=== PATIENT | female | born 1950 | race African-American/Black ===

== ENCOUNTER 2017-06-05 11:25 | Inpatient (IN) | payer BC, OTHER ==
[2017-06-05] MEDS ORDERED: ASPIRIN 81 MG CHEWABLE TABLETS PO ONE (12:13)
[2017-06-05] MEDS ORDERED: ASPIRIN 81 MG CHEWABLE TABLETS ONE (12:17)
--- NOTE | 2017-06-05 12:25 | PDOC ---
History of Present Illness - History of Present Illness Initial Comments: 06/05/17 12:15 Patient is a 66 year old female with a history of HTN, DM who presents with chest pain. The patient reports onset of intermittent sharp left-sided chest pain beginning 24 hours ago. She states that the pain is very sharp occurring for 1-3 seconds before resolving. She states that she is pain free for up to 3 hours and as short as a few minutes. The pain occurs at rest or while walking around. She denies any fevers, chills, SOB at rest, nausea, vomiting, abdominal pain or changes with bowel movements or urination. She denies any recent long travel, immobilization, surgeries, or lower extremity edema. <Devendra Weeks - Last Filed: 06/05/17 15:33> <Maral Ewing - Last Filed: 06/05/17 16:06> - General Chief Complaint: Chest Pain Stated Complaint: CHEST PAIN, TINGLING TO BOTH HANDS, HEADACHE Time Seen by Provider: 06/05/17 11:34 Past History - Past Medical History Anemia: No Asthma: Yes (NO MEDS) Cancer: No Cardiac Disorders: No CVA: No COPD: No CHF: No Dementia: No Diabetes: Yes GI Disorders: No Disorders: No HTN: Yes Hypercholesterolemia: No Liver Disease: No Seizures: No Thyroid Disease: No - Surgical History Abdominal Surgery: Yes (GASTRIC BYPASS 2004) Appendectomy: No Cardiac Surgery: No Cholecystectomy: No Lung Surgery: No Neurologic Surgery: No Orthopedic Surgery: Yes (1970S REPAIR OF LEFT AND RIGHT TOES SECONDARY TO DEFORMITY) - Psycho/Social/Smoking Cessation Hx Anxiety: No Suicidal Ideation: No Smoking Status: No Smoking History: Former smoker Have you smoked in the past 12 months: No Number of Cigarettes Smoked Daily: 0 If you are a former smoker, when did you quit?: 1995 Information on smoking cessation initiated: No Hx Alcohol Use: No Drug/Substance Use Hx: No Substance Use Type: None Hx Substance Use Treatment: No <Devendra Weeks - Last Filed: 06/05/17 15:33> <Maral Ewing - Last Filed: 06/05/17 16:06> - Past Medical History Allergies/Adverse Reactions: Allergies Allergy/AdvReac Type Severity Reaction Status Date / Time No Known Allergies Allergy Verified 06/05/17 11:29 Home Medications: Ambulatory Orders Biotin 1 mg PO DAILY 06/05/17 Glyburide/Metformin HCl [Glyburide-Metformin 5-500 mg] 1 each PO BID 06/05/17 Grape Seed Xt/Bioflavon,[place] [Grape Seed 50 mg Capsule] 1 each PO DAILY Losartan/Hydrochlorothiazide [Losartan-Hctz 100-25 mg Tab] 1 each PO DAILY 06/05 [place]-3S/Dha/Epa/Fish Oil [Fish Oil [place]-3 Softgel] 1 each PO DAILY 06/05/17 Turmeric/Turmeric Ext/Pepr Ext [Turmeric Complex 500 mg Cap] 1 each PO DAILY Review of Systems - Review of Systems Constitutional: No: Chills, Fever HEENTM: No: Recent change in vision Respiratory: No: Cough, SOB with Exertion, SOB at Rest, Hemoptysis Cardiac (ROS): Yes: Chest Pain. No: Palpitations, Chest Tightness ABD/GI: No: Constipated, Diarrhea, Nausea, Vomiting : No: Burning, Dysuria Integumentary: No: Rash Neurological: Yes: Tingling. No: Headache, Numbness, Weakness <Devendra Weeks - Last Filed: 06/05/17 15:33> *Physical Exam - Vital Signs Last Vital Signs Temp Pulse Resp BP Pulse Ox 98.2 F 84 18 136/72 100 06/05/17 11:25 06/05/17 11:25 06/05/17 11:25 06/05/17 11:25 06/05/17 11:25 - Physical Exam Comments: 06/05/17 12:28 General Appearance: Nourished. No Apparent Distress HEENT: No Pharyngeal Erythema, Tonsillar Exudate, Tonsillar Erythema Respiratory/Chest: Lungs Clear, Normal Breath Sounds. No Crackles, Rales, Rhonchi, Wheezing Cardiovascular: Regular Rhythm, Regular Rate. No Murmur, Gallop/S3, Gallop/S4 , Reproducible tenderness to palpation over the left anterior chest wall. Gastrointestinal/Abdominal: Normal Bowel Sounds, Soft. No Guarding, Rebound, Tenderness Extremity: Normal Capillary Refill. No Coldness, Cyanosis, Pedal Edema, Swelling, Calf Tenderness Integumentary: Normal Color, Dry, Warm Neurologic: Fully Oriented, Alert, Normal Mood/Affect, Normal Response <Devendra Weeks - Last Filed: 06/05/17 15:33> - Vital Signs Last Vital Signs Temp Pulse Resp BP Pulse Ox 98.2 F 84 18 136/72 100 06/05/17 11:25 06/05/17 11:25 06/05/17 11:25 06/05/17 11:25 06/05/17 11:25 <Maral Ewing - Last Filed: 06/05/17 16:06> ED Treatment Course - LABORATORY CBC & Chemistry Diagram: 06/05/17 12:00 06/05/17 12:00 <Devendra Weeks - Last Filed: 06/05/17 15:33> - LABORATORY CBC & Chemistry Diagram: 06/05/17 12:00 06/05/17 12:00 - ADDITIONAL ORDERS Additional order review: Laboratory Results 06/05/17 06/05/17 12:00 12:00 Sodium 135 L Potassium 4.4 Chloride 102 Carbon Dioxide 25 Anion Gap 8 BUN 36 H Creatinine 1.4 H Creat Clearance w eGFR 37.62 Random Glucose 109 H Calcium 9.5 Total Bilirubin 0.1 L AST 24 ALT 19 Alkaline Phosphatase 106 H Creatine Kinase 76 Troponin I < 0.03 L Total Protein 6.9 Albumin 4.1 06/05/17 12:00 RBC 4.67 MCV 89.4 MCHC 33.5 RDW 12.4 MPV 9.5 Neutrophils % 55.7 Lymphocytes % 33.6 Monocytes % 7.5 Eosinophils % 1.6 Basophils % 1.6 - RADIOLOGY Radiology Studies Ordered: Category Date Time Status CHEST PA & LAT [RAD] Stat Radiology 06/05/17 12:12 Completed - Medications Given in the ED: ED Medications Discontinued Medications Generic Name Dose Route Start Last Admin Trade Name Freq PRN Reason Stop Dose Admin Aspirin 162 mg 06/05/17 12:13 06/05/17 12:18 Asa - PO 06/05/17 12:14 162 mg ONCE ONE Administration <Mraal Ewing - Last Filed: 06/05/17 16:06> Medical Decision Making - Medical Decision Making 06/05/17 12:29 Patient is a 66 year old female with a history of HTN, Dm, who presents with chest pain. Differential includes but is not limited to: Pneumonia, ACS, PE, Musculoskeletal. Given her physical exam and history the patient is not describing pleuritic chest pain and does not have many risk factors for PE and thus her symptoms are unlikely to be due to a PE. The patient doesn't describe any infectious symptoms and with a benign exam, pneumonia is unlikely. ACS is also low on the differential, however given her risk factors, it is reasonable to evaluate for ACS. Her description of her pain as well as physical exam with some reproducible tenderness to palpation of her chest wall makes musculoskeletal the most likely cause of her pain. We will obtain a chest radiograph, cbc, cmp and troponin to evaluate. 06/05/17 13:37 Patient's labs are unremarkable thus far. Troponin is still pending. Chest radiograph is unremarkable read by our radiologist. We got in contact and discussed the case with the patient's PCP Dr. Randall who asked us to contact the patient's independent insurance adjuster Dr. Araujo. We would like to admit the patient for observation given her risk factors for ACS. Will get in contact with Dr. Santos once troponin results are back. 06/05/17 15:31 Discussed the case with Dr. Santos who agrees with admitting the patient for observation. He wishes to obtain a nuclear stress test tomorrow morning. Will admit for observation and stress testing. <Devendra Weeks - Last Filed: 06/05/17 15:33> - Medical Decision Making 06/05/17 16:[address] taveras, pt baseline creatinine 1.2 creatinine <Maral Ewing - Last Filed: 06/05/17 16:06> *DC/Admit/Observation/Transfer - Attestations Physician Attestion: 06/05/17 15:34 I, Dr. Devendra Weeks, attest that this document has been prepared under my direction and personally reviewed by me in its entirety. I further attest, that it accurately reflects all work, treatment, procedures and medical decision -making performed by me. <Devendra Weeks - Last Filed: 06/05/17 15:33> - Discharge Dispostion Admit: Yes <Maral Ewing - Last Filed: 06/05/17 16:06> Diagnosis at time of Disposition: Chest pain Qualifiers: Chest pain type: unspecified Qualified Code(s): R07.9 - Chest pain, unspecified - Discharge Dispostion Condition at time of disposition: Stable - Referrals Referrals: Leandro Randall MD [Primary Care Provider] -
[2017-06-05 12:33] LABS: BASOPHIL 1.6 % (0-2.0); EOSINOPHIL 1.6 % (0-4.5); MCHC 33.5 g/dl (32.0-36.0); MEAN CELL VOLUME 89.4 fl (80-96); MEAN PLT VOLUME 9.5 fl (7.5-11.1); NEUTROPHILS 55.7 % (42.8-82.8); PLATELET COUNT 304 K/MM3 (134-434); RDW 12.4 % (11.6-15.6); WHITE BLOOD COUNT 7.9 K/mm3 (4.0-10.8)
[2017-06-05 12:47] LABS: ALBUMIN 4.1 g/dl (3.5-5.0); ALK PHOS 106 U/L (32-92); ANION GAP 8 (8-16); CALCIUM 9.5 mg/dl (8.4-10.2); CO2 25 mmol/L (22-28); CPK(DFH) 76 IU/L (26-140); CREATININE 1.4 mg/dl (0.6-1.3); GLUCOSE,RANDOM 109 mg/dl (74-106); SGOT/AST 24 U/L (10-42); SGPT/ALT 19 U/L (10-40); TOT PROT 6.9 g/dl (6.4-8.3)
[2017-06-05 13:07] LABS: BILIRUBIN,TOTAL 0.1 mg/dl (0.2-1.0)
[2017-06-05 13:49] LABS: TROPONIN I (DFP) < 0.03 ng/ml (0.03-0.50)
--- NOTE | 2017-06-05 14:49 | PDOC ---
Attending Attestation - Resident Resident Name: Devendra Weeks - ED Attending Attestation I have performed the following: I have examined & evaluated the patient, The case was reviewed & discussed with the resident, I agree w/resident's findings & plan, Exceptions are as noted - HPI HPI: 06/05/17 14:46 66 yo F with h/o HTN DM and family ho CAD here with c/o chest pain. intermittent night prior happened at rest. sharp no radiation. no mod factors. no new leg swelling. no mod factors. did not take anything for pain. no ho pe or dvt. no recent travel. no leg or calf pain. no cough no f/c no n/f no associated diaphoresis. - Physicial Exam PE: 06/05/17 14:47 NAD awake alert lungs clear bilat. heart RRR no mrg. abd soft NTND. skin warm and dry. no calf tenderness. no edema. 2 + symm pulses . nuero moves all ext. alert oriented x 3 - Medical Decision Making 06/05/17 14:48 66 yo F DM HTN famil h/o CAD here with c/o chest pain. reproducible chest pain on exam but several risk factors for CAD. last stress many years ago. differential acs, msk , gerd pna PE unlikely as no risk factors. 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 will likely require admission to tele for serial enzymes. and short term stress. 06/05/17 15:35 d/w dr bose, recommend admission to observation due to RISK factors high heart score, will get nuclear stress in AM. pg hospitalist , received. Heart Score/ECG Review - History History: Moderately suspicious - Electrocardiogram EKG: Non specific repolarization disturbance - Age Age: >/= 65 - Risk Factors Risk Factors Heart Score: Yes Hx Hypertension, Yes Hx Diabetes, Yes Smoking History, Yes Positive family hx of cardiac disease Based on the list above the patient has:: >/=3 risk factors or Hx atherosclerotic disease - Troponin Troponin: </= normal limit - Score Heart Score - Total: 6 #1 ECG reviewed & interpreted by me at: 11:40 General ECG Interpretation: Sinus Rhythm, Normal Rate (78), Normal Intervals, No acute ischemic changes Compared to previous ECG there are: No significant change - ECG Intrepretation Rhythm: Regular Rhythm
[2017-06-05] MEDS ORDERED: SODIUM CHLORIDE 0.9% 1000 ML INFUS.BAG IV ONE (16:02)
[2017-06-05 18:15] VITALS: BMI 30.9
[2017-06-05] MEDS: INSULIN SLIDING SCALE (NOVOLOG) 1 VIAL SQ SCH ×2 (19:14→21:47)
--- NOTE | 2017-06-05 21:03 | EKG ---
Test Reason : Blood Pressure : / mmHG Vent. Rate : 078 BPM Atrial Rate : 078 BPM P-R Int : 170 ms QRS Dur : 078 ms QT Int : 386 ms P-R-T Axes : 014 -63 058 degrees QTc Int : 440 ms NORMAL SINUS RHYTHM LEFT AXIS DEVIATION ATRIAL ABNORMALITY NONSPECIFIC T WAVE ABNORMALITY ABNORMAL ECG WHEN COMPARED WITH ECG OF 14-DEC-1999 09:12, NO SIGNIFICANT CHANGE WAS FOUND REPEAT EKG IF CLINICALLY INDICATED Confirmed by KARI SOSA MD ([id number]) on 06/05/2017 9:02:38 PM Referred By: KARLEY JAIME Confirmed By:KARI SOSA MD
--- NOTE | 2017-06-05 22:10 | HP ---
CHIEF COMPLAINT: Chest Pain, Numbness PCP: Dr. Leandro Randall HISTORY OF PRESENT ILLNESS: This is a 66 y/o woman with a past medical history HTN, DM. Who presents to the ED with Left sided CP and bilateral hand numbness x 1 day. Patient reports the CP has sharp and intermittent. Patient denies recent travel, lifting heavy objects. Patient denies fever, chills, cough, SOB, AP, N/V/D, constipation, dysuria. Patient has a familial hx of Cardiac Disease. ER course was notable for: (1) Cardiac Enzymes neg x2 (2) EKG- SR 76 bpm , no ST or TWI (3) TONI- BUN 36, Cr 1.4 Recent Travel: None PAST MEDICAL HISTORY: HTN DM Asthma PAST SURGICAL HISTORY: Gastric Bypass Social History: Smoking: Former, quit 1995 Alcohol: None Drugs: None Lives with family, Independent Family History: Mother: [place], age 50 Father: [place] Allergies No Known Allergies Allergy (Verified 06/05/17 11:29) HOME MEDICATIONS: Home Medications Medication Instructions Recorded Biotin 1 mg PO DAILY 06/05/17 Glyburide/Metformin HCl 1 each PO BID 06/05/17 [Glyburide-Metformin 5-500 mg] Grape Seed Xt/Bioflavon,[place] 1 each PO DAILY 06/05/17 [Grape Seed 50 mg Capsule] Losartan/Hydrochlorothiazide 1 each PO DAILY 06/05/17 [Losartan-Hctz 100-25 mg Tab] [place]-3S/Dha/Epa/Fish Oil [Fish 1 each PO DAILY 06/05/17 Oil [place]-3 Softgel] Turmeric/Turmeric Ext/Pepr Ext 1 each PO DAILY 06/05/17 [Turmeric Complex 500 mg Cap] REVIEW OF SYSTEMS CONSTITUTIONAL: Absent: fever, chills, diaphoresis, generalized weakness, malaise, loss of appetite, weight change HEENT: Absent: rhinorrhea, nasal congestion, throat pain, throat swelling, difficulty swallowing, mouth swelling, ear pain, eye pain, visual changes CARDIOVASCULAR: chest pain Absent: syncope, palpitations, irregular heart rate, lightheadedness, peripheral edema RESPIRATORY: Absent: cough, shortness of breath, dyspnea with exertion, orthopnea, wheezing, stridor, hemoptysis GASTROINTESTINAL: Absent: abdominal pain, abdominal distension, nausea, vomiting, diarrhea, constipation, melena, hematochezia GENITOURINARY: Absent: dysuria, frequency, urgency, hesitancy, hematuria, flank pain, genital pain MUSCULOSKELETAL: Absent: myalgia, arthralgia, joint swelling, back pain, neck pain SKIN: Absent: rash, itching, pallor HEMATOLOGIC/IMMUNOLOGIC: Absent: easy bleeding, easy bruising, lymphadenopathy, frequent infections ENDOCRINE: Absent: unexplained weight gain, unexplained weight loss, heat intolerance, cold intolerance NEUROLOGIC: paresthesias Absent: headache, focal weakness, dizziness, unsteady gait, seizure, mental status changes, bladder or bowel incontinence PSYCHIATRIC: Absent: anxiety, depression, suicidal or homicidal ideation, hallucinations. PHYSICAL EXAMINATION Vital Signs - 24 hr 06/05/17 06/05/17 06/05/17 18:06 18:14 20:09 Temperature 97.4 F L 97.4 F L Pulse Rate 71 71 Respiratory 18 18 18 Rate Blood Pressure 112/56 112/56 O2 Sat by Pulse 100 100 Oximetry (%) GENERAL: Awake, alert, and fully oriented, in no acute distress. HEAD: Normal with no signs of trauma. EYES: Pupils equal, round and reactive to light, extraocular movements intact, sclera anicteric, conjunctiva clear. No lid lag. EARS, NOSE, THROAT: Ears normal, nares patent, oropharynx clear without exudates. Moist mucous membranes. NECK: Normal range of motion, supple without lymphadenopathy, JVD, or masses. LUNGS: Breath sounds equal, clear to auscultation bilaterally. No wheezes, and no crackles. No accessory muscle use. HEART: Regular rate and rhythm, normal S1 and S2 without murmur, rub or gallop. CP reproducible to palpation ABDOMEN: Soft, nontender, not distended, normoactive bowel sounds, no guarding, no rebound, no masses. No hepatomegaly or splenomegaly. MUSCULOSKELETAL: Normal range of motion at all joints. No bony deformities or tenderness. No CVA tenderness. UPPER EXTREMITIES: 2+ pulses, warm, well-perfused. No cyanosis. No clubbing. No peripheral edema. LOWER EXTREMITIES: 2+ pulses, warm, well-perfused. No calf tenderness. No peripheral edema. NEUROLOGICAL: Cranial nerves II-XII intact. Normal speech. Gait not observed. PSYCHIATRIC: Cooperative. Good eye contact. Appropriate mood and affect. SKIN: Warm, dry, normal turgor, no rashes or lesions noted, normal capillary refill. Laboratory Results - last 24 hr 06/05/17 06/05/17 06/05/17 12:00 12:00 12:00 WBC 7.9 RBC 4.67 Hgb 14.0 Hct 41.7 MCV 89.4 MCH 30.0 MCHC 33.5 RDW 12.4 Plt Count 304 MPV 9.5 Neutrophils % 55.7 Lymphocytes % 33.6 Monocytes % 7.5 Eosinophils % 1.6 Basophils % 1.6 Sodium 135 L Potassium 4.4 Chloride 102 Carbon Dioxide 25 Anion Gap 8 BUN 36 H Creatinine 1.4 H Creat Clearance w eGFR 37.62 POC Glucometer Random Glucose 109 H Calcium 9.5 Total Bilirubin 0.1 L AST 24 ALT 19 Alkaline Phosphatase 106 H Creatine Kinase 76 Troponin I < 0.03 L Total Protein 6.9 Albumin 4.1 06/05/17 06/05/17 06/06/17 18:10 21:42 00:00 WBC RBC Hgb Hct MCV MCH MCHC RDW Plt Count MPV Neutrophils % Lymphocytes % Monocytes % Eosinophils % Basophils % Sodium Potassium Chloride Carbon Dioxide Anion Gap BUN Creatinine Creat Clearance w eGFR POC Glucometer 163 Random Glucose Calcium Total Bilirubin AST ALT Alkaline Phosphatase Creatine Kinase Cancelled Troponin I 0.00 Cancelled Total Protein Albumin 06/06/17 00:03 WBC RBC Hgb Hct MCV MCH MCHC RDW Plt Count MPV Neutrophils % Lymphocytes % Monocytes % Eosinophils % Basophils % Sodium Potassium Chloride Carbon Dioxide Anion Gap BUN Creatinine Creat Clearance w eGFR POC Glucometer Random Glucose Calcium Total Bilirubin AST ALT Alkaline Phosphatase Creatine Kinase 80 Troponin I < 0.02 Total Protein Albumin Laboratory Results - last 24 hr 06/05/17 06/05/17 18:10 21:42 POC Glucometer 163 Troponin I 0.00 ASSESSMENT/PLAN: This is a 66 y/o woman with a PMHx of: HTN, DM, Asthma. Placed on Tele Observation for Chest Pain r/o ACS, Numbness for further evaluation of their emergent condition. Problem List - Problem (1) Chest pain Assessment/Plan: - r/o ACS - HEART Score 6 - BIBI Score 2 - EKG reviewed - Chest Xray- reviewed - Tele monitoring - Appreciate Cardiology Consult - Serial Enzymes neg x2 continue to trend - Asa - Stress Test in am Code(s): R07.9 - CHEST PAIN, UNSPECIFIED Qualifiers: Chest pain type: unspecified Qualified Code(s): R07.9 - Chest pain, unspecified (2) TONI (acute kidney injury) Assessment/Plan: - Likely secondary to Medication vs Dehydration - Cr 1.4 not at baseline - Will Hold Metformin - Monitor renal function Code(s): N17.9 - ACUTE KIDNEY FAILURE, UNSPECIFIED (3) HTN (hypertension) Assessment/Plan: - Controlled - Monitor BP - Continue home med - Monitor renal function - Low Na Diet Code(s): I10 - ESSENTIAL (PRIMARY) HYPERTENSION (4) Diabetes mellitus Assessment/Plan: - Controlled - BGMs - ISS - HgbA1c in am - Hold Metformin 2/2 renal insufficiency Code(s): E11.9 - TYPE 2 DIABETES MELLITUS WITHOUT COMPLICATIONS (5) Asthma Assessment/Plan: - Well Controlled - Ventolin Inh prn SOB Code(s): J45.909 - UNSPECIFIED ASTHMA, UNCOMPLICATED (6) DVT prophylaxis Assessment/Plan: - OOB - SCDs - Heparin if LOS > 48 hrs Code(s): OFZ6051 - Visit type - Emergency Visit Emergency Visit: Yes ED Registration Date: 06/05/17 Care time: The patient presented to the Emergency Department on the above date and was hospitalized for further evaluation of their emergent condition. - New Patient This patient is new to me today: Yes Date on this admission: 06/05/17 - Critical Care Critical Care patient: No
[2017-06-06 00:33] LABS: TROPONIN I < 0.02 ng/ml (0.00-0.05)
[2017-06-06] MEDS: INSULIN SLIDING SCALE (NOVOLOG) 1 VIAL SQ SCH ×3 (06:03→18:20)
[2017-06-06 08:39] LABS: ANION GAP 6 (8-16); CALCIUM 9.2 mg/dl (8.4-10.2); CO2 26 mmol/L (22-28); CREATININE 1.2 mg/dl (0.6-1.3); GLUCOSE,RANDOM 125 mg/dl (74-106); MAGNESIUM 2.1 mg/dL (1.8-2.4); PHOSPHOROUS 4.9 mg/dl (2.5-4.6)
[2017-06-06 09:21] LABS: MCH 30.2 pg (25.7-33.7); MCHC 33.3 g/dl (32.0-36.0); MEAN CELL VOLUME 90.6 fl (80-96); MEAN PLT VOLUME 9.3 fl (7.5-11.1); PLATELET COUNT 245 K/MM3 (134-434); RDW 12.5 % (11.6-15.6); WHITE BLOOD COUNT 6.3 K/mm3 (4.0-10.8)
--- NOTE | 2017-06-06 09:29 | PN ---
Physical Exam: SUBJECTIVE: Patient seen and examined reports feeling well, denies any chest pain or shortness of breath. OBJECTIVE: patient is a 66 y/o woman with a past medical history HTN and DM. Patient was admitted from the emergency department to observation for chest pain r/o acs. Vital Signs Period Temp Pulse Resp BP Sys/[place]rick Pulse Ox Last 24 Hr 97.4 F-98.3 F 58-71 18-18 106-121/56-69 100-100 GENERAL: The patient is awake, alert, and fully oriented, in no acute distress. HEAD: Normal with no signs of trauma. EYES: PERRL, extraocular movements intact, sclera anicteric, conjunctiva clear. No ptosis. ENT: Ears normal, nares patent, oropharynx clear without exudates, moist mucous membranes. NECK: Trachea midline, full range of motion, supple. LUNGS: Breath sounds equal, clear to auscultation bilaterally, no wheezes, no crackles, no accessory muscle use. HEART: Regular rate and rhythm, S1, S2 without murmur, rub or gallop. ABDOMEN: Soft, nontender, nondistended, normoactive bowel sounds, no guarding, no rebound, no hepatosplenomegaly, no masses. EXTREMITIES: 2+ pulses, warm, well-perfused, no edema. NEUROLOGICAL: Cranial nerves II through XII grossly intact. Normal speech, gait not observed. PSYCH: Normal mood, normal affect. SKIN: Warm, dry, normal turgor, no rashes or lesions noted Laboratory Results - last 24 hr 06/05/17 06/05/17 06/06/17 18:10 21:42 00:00 WBC RBC Hgb Hct MCV MCH MCHC RDW Plt Count MPV Sodium Potassium Chloride Carbon Dioxide Anion Gap BUN Creatinine POC Glucometer 163 Random Glucose Calcium Phosphorus Magnesium Creatine Kinase Cancelled Troponin I 0.00 Cancelled 06/06/17 06/06/17 06/06/17 00:03 06:01 07:30 WBC 6.3 RBC 4.39 Hgb 13.3 Hct 39.7 MCV 90.6 MCH 30.2 MCHC 33.3 RDW 12.5 Plt Count 245 MPV 9.3 Sodium Potassium Chloride Carbon Dioxide Anion Gap BUN Creatinine POC Glucometer 113 Random Glucose Calcium Phosphorus Magnesium Creatine Kinase 80 Troponin I < 0.02 06/06/17 07:30 WBC RBC Hgb Hct MCV MCH MCHC RDW Plt Count MPV Sodium 136 Potassium 4.4 Chloride 104 Carbon Dioxide 26 Anion Gap 6 L BUN 28 H D Creatinine 1.2 POC Glucometer Random Glucose 125 H Calcium 9.2 Phosphorus 4.9 H Magnesium 2.1 Creatine Kinase Troponin I Active Medications Generic Name Dose Route Start Last Admin Trade Name Freq PRN Reason Stop Dose Admin Insulin Aspart 1 vial 06/05/17 16:30 06/06/17 06:03 Novolog Vial Sliding Scale - SQ Not Given ACHS SHREYA Protocol ASSESSMENT/PLAN: 1) card chest pain r/o acs - ekg nsr left axis deviation nonspecific t wave abnormality -troponin x 3 - continue asa - pending nuclear stress test - cardiology () consulted and followed hypertension - b/p at goal, restart losartarn and hctz after stress 2) neph acute kidney injury - likely secondary to dehydration, creatine 1.2, unknown baseline - continue to hold metformin 3)endo niddm - pending hgb a1c - fingersticks achs with regular insulin sliding scale 4) pulm asthma - no acute excerbation at this time - continue prn ventolin f/e/n - low sodium diabetic diet ppx - oob - scd - less than 2mn los dispo: requires tele obsv Visit type - Emergency Visit Emergency Visit: Yes ED Registration Date: 06/05/17 Care time: The patient presented to the Emergency Department on the above date and was hospitalized for further evaluation of their emergent condition. - New Patient This patient is new to me today: Yes Date on this admission: 06/06/17 - Critical Care Critical Care patient: No - Discharge Referral Referred to [facility] Med P.C.: No
--- NOTE | 2017-06-06 13:07 | TRE ---
Protocol Name : KRISTIE Max Work Load (METS*10) : 70 Time In Exercise Phase : 00:05:24 Max. Systolic BP : 170 mmHg Max Diastolic BP : 82 mmHg Max Heart Rate : 130 BPM Max Predicted Heart Rate : 154 BPM Attending Physician : DANDRE FRIEND Reason For Termination : Target Heart Rate Achieved Reason for Test : UNSTABLE ANGINA Stress Protocol : KRISTIE Rest HR : 88 BPM PeakEx METs : 7.0 METS Recovery ECG Response (OLD) : Diagnosis : Positive stress test no chest pain [address] depression II III F frequent VPC's Inverted T vawes in V4-V6 in recovery Confirmed by DANDRE FRIEND MD ([id number]) on 06/06/2017 1:07:14 PM
--- NOTE | 2017-06-06 14:22 | CONS ---
DATE OF CONSULTATION: 06/06/2017 REQUESTING PHYSICIAN: Karen Gupta NP HISTORY: The patient is a 66-year-old female who has a known case of hpi-rlrwftj-dgetdphgw diabetes mellitus, hypertension. The patient developed bilateral paresthesia involving both upper extremities associated with mild left-sided pressure-like chest discomfort. The symptoms started 1 week ago and occurred at rest resting 1-2 minutes and would james spontaneously. The patient states that on the first day she had 3-4 episodes and the following day she had recurrent approximately 2 times. There were days when she was symptom free and then on the day of admission had another episode that was similar in nature and was nonexertional, nonpleuritic, and there were no symptoms of dyspnea, diaphoresis. The patient did notice that she had excessive flatulence. There is no history of hypercholesterolemia. The patient does have exertional dyspnea climbing 2 flights of stairs. No history of paroxysmal or nocturnal dyspnea or orthopnea. No history of palpitations, lightheadedness, dizziness, presyncope, or syncope. No history of cough or expectoration. PAST HISTORY: 1. Bronchial asthma. 2. As mentioned in the history of present illness. 3. History of arthritis of the left hip. SURGICAL HISTORY: 1. Status post tonsillectomy. 2. Status post gastric bypass surgery. 3. Status post left hip replacement. SOCIAL HISTORY: She is single. Stopped smoking back in the mid 90s. On a rare occasion has a drink. No history of drug use. FAMILY HISTORY: Father in his 70s related to a myocardial infarction. Mother in her 50s related to a myocardial infarction. The patient has 2 brothers and 2 sisters. Both signs are , one with complications of bronchial asthma the other due to complications of chronic obstructive pulmonary disease. The brother of ethanol abuse. The other brother is also an alcoholic and is known to have coronary artery disease. ALLERGIES: None reported. MEDICATIONS: Current medications: 1. Insulin sliding scale. 2. Aspirin 82 mg p.o. daily. Medications prior to admission: 1. Glyburide metformin 5/500 mg p.o. b.i.d. before meals. 2. Losartan/hydrochlorothiazide 100/25 mg p.o. daily. 3. [place]bler-3 fatty acid 1 p.o. daily. Fsqn-xau-zwrguap: 1. Biotin 1 p.o. daily. 2. Turmeric extract 1 p.o. daily. 3. Grape seed and bioflavin 1 p.o. daily. REVIEW OF SYSTEMS: Constitutional: No history of chills, fever, or night sweats. No history of unintentional weight loss. HEENT: No history of headaches, diplopia, blurred vision. No history of epistaxis, hoarseness, tinnitus, or deafness reported. Cardiovascular: See history of present illness. Respiratory: History of bronchial asthma. No recent recurrence. No history of cough expectoration or hemoptysis. Gastrointestinal: No history of nausea, melena, or hemoptysis. No history of abdominal pain or discomfort. No history of change in bowel habits. Central Nervous System: No history of lightheadedness, dizziness, presyncope, or syncope. No history of seizures or focal weakness. Endocrine: See history of present illness. No history of polyuria or polydipsia. No history of intolerance to cold or warm weather. Musculoskeletal: See history of present illness. No history of myalgias. Gastrointestinal: No history of dysuria, frequency, or hematuria. Hematological/Lymphatics: No history of ecchymosis, bleeding. No history of anemia. No history of lymphadenopathy. PHYSICAL EXAMINATION: General: A 66-year-old female who is in no distress. No pallor, cyanosis, clubbing, or jaundice. Vital Signs: Blood pressure 106/69 mmHg, pulse 58 beats per minute and regular. Patient is afebrile. Weight is not available. Neck: Supple. No jugular venous distention. Carotids are equal, and upstrokes are normal. No bruits are heard, and no thyromegaly is present. Heart: PMI is in the 5th intercostal space. No heaves or thrills. S1, S2 are normal. No murmur or gallop is heard. Lungs: Clear on auscultation. Chest: Normal AP diameter. Expansion is symmetrical. Abdomen: Protuberant, soft, and nontender. No hepatosplenomegaly or palpable masses are felt. There is a well healed surgical scar. Bowel sounds are active. No bruits are heard. Extremities: No calf tenderness or dependent edema. Pulses are equal. LABORATORY DATA: ECG: Normal sinus rhythm. Left axis deviation consistent with left anterior hemiblock. Slow R wave progression V1-V4 with terminal S5 in V5 and V6 most likely related to left anterior hemiblock or related to technical and/or positional factors. Nonspecific T-wave abnormalities. No previous ECG was available for comparision. June 06, 2017: Sodium 126, potassium 4.4, chloride 104, CO2 is 26, BUN 6, creatinine 1.2. Random glucose 125 mg/dL. CK was 80, troponin less than 0.02. CBC: WBC count 6300, hemoglobin 13.3 g, platelet count 245,000. X-ray chest impression: No evidence of active pulmonary disease. IMPRESSION: 1. Chest pain syndrome. Etiology to be determined. Coronary artery disease, angina pectoris needs exclusion. 2. Dzi-omampky-xkcjiggao diabetes mellitus. 3. Hypertension. Hypertensive coronary artery disease currently normotensive. 4. History of bronchial asthma. 5. Status post gastric bypass surgery. 6. Family history of coronary artery disease. RECOMMENDATIONS: 1. Myoview stress test. 2. Risk modifications. 3. Continue current therapy. 4. Resume antihypertensive therapy following the stress test. 5. Further suggests will depend upon the stress test results. Thank you for your referral. Sincerely, KARI SOSA M.D. [id number]
--- NOTE | 2017-06-06 15:34 | DS ---
Physical Exam: SUBJECTIVE: Patient seen and examined, patient is pending transfer to [facility] for cardiac cath. OBJECTIVE: patient is a 66 y/o woman with a past medical history HTN, DM. She presented to the ED with Left sided CP and bilateral hand numbness x 1 day. Patient reports the chest pain was sharp and intermittent. Patient denies recent travel, lifting heavy objects. Patient denies fever, chills, cough, SOB, AP, N/V/D, constipation, dysuria. Patient has a familial hx of Cardiac Disease. ER course was notable for: (1) Cardiac Enzymes neg x2 (2) EKG- SR 76 bpm , no ST or TWI (3) TONI- BUN 36, Cr 1.4 Vital Signs Period Temp Pulse Resp BP Sys/Myrick Pulse Ox Last 24 Hr 97.4 F-98.3 F 58-71 16-18 106-121/56-69 98-100 PHYSICAL EXAM GENERAL: The patient is awake, alert, and fully oriented, in no acute distress. HEAD: Normal with no signs of trauma. EYES: PERRL, extraocular movements intact, sclera anicteric, conjunctiva clear. ENT: Ears normal, nares patent, oropharynx clear without exudates, moist mucous membranes. NECK: Trachea midline, full range of motion, supple. LUNGS: Breath sounds equal, clear to auscultation bilaterally, no wheezes, no crackles, no accessory muscle use. HEART: Regular rate and rhythm, S1, S2 without murmur, rub or gallop. ABDOMEN: Soft, nontender, nondistended, normoactive bowel sounds, no guarding, no rebound, no hepatosplenomegaly, no masses. EXTREMITIES: 2+ pulses, warm, well-perfused, no edema. NEUROLOGICAL: Cranial nerves II through XII grossly intact. Normal speech, gait not observed. PSYCH: Normal mood, normal affect. SKIN: Warm, dry, normal turgor, no rashes or lesions noted. LABS Laboratory Results - last 24 hr 06/05/17 06/05/17 06/06/17 18:10 21:42 00:00 WBC RBC Hgb Hct MCV MCH MCHC RDW Plt Count MPV Sodium Potassium Chloride Carbon Dioxide Anion Gap BUN Creatinine POC Glucometer 163 Random Glucose Calcium Phosphorus Magnesium Creatine Kinase Cancelled Troponin I 0.00 Cancelled 06/06/17 06/06/1717 00:03 06:01 07:30 WBC 6.3 RBC 4.39 Hgb 13.3 Hct 39.7 MCV 90.6 MCH 30.2 MCHC 33.3 RDW 12.5 Plt Count 245 MPV 9.3 Sodium Potassium Chloride Carbon Dioxide Anion Gap BUN Creatinine POC Glucometer 113 Random Glucose Calcium Phosphorus Magnesium Creatine Kinase 80 Troponin I < 0.02 06/06/17 07:30 WBC RBC Hgb Hct MCV MCH MCHC RDW Plt Count MPV Sodium 136 Potassium 4.4 Chloride 104 Carbon Dioxide 26 Anion Gap 6 L BUN 28 H D Creatinine 1.2 POC Glucometer Random Glucose 125 H Calcium 9.2 Phosphorus 4.9 H Magnesium 2.1 Creatine Kinase Troponin I HOSPITAL COURSE: Patient is a 66 y/o female that was admitted from the emergency department to telemetry for unstable angina. EKG upon admission, NSR with non specific t wave abnormality. Troponin x 3 WNL. Patient was given aspirin upon arrival to the emergency department and continued throughout admission. She denied any episode of chest pain during her admission. Dr Santos, envelope folding machine operator was consulted and case discussed at bedside. Patient underwent a exercise stress test which resulted as 1mm st depression in the inferior leads, II, III, avf with inverted t waves v 4- v6, positive stress test. She next underwent a myocardial perfusion scan, resulting as moderate sized mild intensity inferior septal reversible perfusion defect consistent with ischemia. Patient was placed on toprol 25mg xl. Upon review of exercise and myocardial perfusion scan with the envelope folding machine operator, patient was informed of the results and decision was made for transfer to [facility] for cardiac cath. Transfer arrangement was made by Dr Santos cardiology. Date of Admission:06/05/17 Date of Discharge: 06/06/17 Minutes to complete discharge: 45 Discharge Summary Reason For Visit: CHEST PAIN Current Active Problems TONI (acute kidney injury) (Acute) Asthma (Acute) Chest pain (Acute) DVT prophylaxis (Acute) Diabetes mellitus (Acute) HTN (hypertension) (Acute) Condition: Guarded - Instructions Referrals: Leandro Randall MD [Primary Care Provider] - Darin Santos MD [Staff Physician] - Disposition: TRANSFER ACUTE CARE/OTHER HOSP - Home Medications Comprehensive Discharge Medication List: Ambulatory Orders Biotin 1 mg PO DAILY 06/05/17 Glyburide/Metformin HCl [Glyburide-Metformin 5-500 mg] 1 each PO BID 06/05/17 Grape Seed Xt/Bioflavon,[place] [Grape Seed 50 mg Capsule] 1 each PO DAILY Losartan/Hydrochlorothiazide [Losartan-Hctz 100-25 mg Tab] 1 each PO DAILY 06/05 Egan-3S/Dha/Epa/Fish Oil [Fish Oil [place]-3 Softgel] 1 each PO DAILY 06/05/17 Turmeric/Turmeric Ext/Pepr Ext [Turmeric Complex 500 mg Cap] 1 each PO DAILY This patient is new to me today: Yes Date on this admission: 06/06/17 Emergency Visit: Yes ED Registration Date: 06/05/17 Care time: The patient presented to the Emergency Department on the above date and was hospitalized for further evaluation of their emergent condition. Critical Care patient: Yes Total Critical Care Time (in minutes): 45 Critical Care Statement: The care of this patient involved high complexity decision making to prevent further life threatening deterioration of the patient 's condition and/or to evalute & treat vital organ system(s) failure or risk of failure. - Discharge Referral Referred to [facility] No
[2017-06-06] MEDS ORDERED: ASPIRIN 81 MG CHEWABLE TABLETS PO SCH (17:30)
[2017-06-06] MEDS ORDERED: METOPROLOL SUCCINATE 25 MG TAB.SR.24H (FP) PO SCH (17:30)
[2017-06-06 21:16] VITALS: BP 126/77; PULSE 62; TEMP 97.9
[2017-06-06] MEDS ORDERED: INSULIN SLIDING SCALE (NOVOLOG) 1 VIAL SQ SCH (22:00)
[2017-06-07] MEDS ORDERED: ASPIRIN 81 MG CHEWABLE TABLETS PO SCH (10:00)
[2017-06-07] MEDS ORDERED: [UNRECOGNIZED DRUG - OTHER] PO SCH ×3 (10:00)
[2017-06-07] MEDS ORDERED: [UNRECOGNIZED DRUG - OTHER] PO SCH ×3 (10:00)
[2017-06-07] MEDS ORDERED: PATIENT'S OWN MEDICATION (NON-FORMULARY) (Losartan/Hydrochlorothiazide [Losartan-Hctz 100- PO SCH (10:00)
[2017-06-07] MEDS ORDERED: PEPR EXT PO SCH ×3 (10:00)
[2017-06-07] MEDS ORDERED: TURMERIC PO SCH ×3 (10:00)
[2017-06-07] MEDS ORDERED: PATIENT'S OWN MEDICATION (NON-FORMULARY) (Omega-3s/Dha/Epa/Fish Oil [Fish Oil Omega-3 Soft PO SCH ×3 (10:00)
[2017-06-07] MEDS ORDERED: TURMERIC EXT PO SCH ×3 (10:00)
[2017-06-07] MEDS ORDERED: LOSARTAN 50MG/HCTZ 12.5MG 1 TAB (FP) PO SCH ×2 (10:00)
[2017-06-07] MEDS ORDERED: PATIENT'S OWN MEDICATION (NON-FORMULARY) (Biotin [Biotin] 1 MG) PO SCH ×3 (10:00)
== END 2017-06-06 23:45 | disposition short-term general hospital (02) | DRG 303 ==
LOC: FER 11:25 → FM/S 17:01 → OBSVTOIN 06-06 16:27 → UNDODISOB 06-06 16:28 → JICU 06-06 17:20 → J4W 06-06 19:55
PROVIDERS: ADMIT Internal Medicine; ATTEND Nurse Practitioner Family
DX: I25.118 Atherosclerotic heart disease of native coronary artery with other forms of angina pectoris (principal); N17.9 Acute kidney failure, unspecified; R07.89 Other chest pain; I10 Essential (primary) hypertension; E11.9 Type 2 diabetes mellitus without complications; J45.909 Unspecified asthma, uncomplicated; Z98.84 Bariatric surgery status; Z87.891 Personal history of nicotine dependence; E86.0 Dehydration
CPT/HCPCS: 36415; 71020-TC; 78452-TC; 80048; 80053; 82550; 83735; 84100; 84484; 85025; 85027; 93005; 93017; 93018; 99285-25; A9502; G0378

== ENCOUNTER 2017-11-19 11:45 | Observation (INO) | payer OTHER ==
[2017-11-19] MEDS ORDERED: SODIUM CHLORIDE 1,000 ML IV STA (12:21)
[2017-11-19 12:36] VITALS: BMI 31.6
--- NOTE | 2017-11-19 12:36 | PDOC ---
History of Present Illness - General History Source: Patient, Family Exam Limitations: No Limitations - History of Present Illness Initial Comments: 11/19/17 13:03 The patient is a 67 year old female, with a significant past medical history of HTN, DM who presents to the emergency department s/p fall today. 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 Patient was unconscious for few minutes and found herself on the floor. Patient landed on her L hip and presents to the ED for further evaluation. Patient denies any head trauma, other injuries. Patient denies chest pain, headache or dizziness. Patient denies fever, chills, abdominal pain, nausea, vomit, diarrhea or constipation. Patient denies dysuria , frequency, urgency or hematuria. Patient denies sick contacts or recent travel. Allergies: NKA Past surgical history: None Social history: Former smoker (1995) PCP: Dr. Randall <Fabiola Ramsay - Last Filed: 11/19/17 14:03> - General History Source: Patient, Family Exam Limitations: No Limitations <Jeff Horowitz - Last Filed: 11/19/17 14:52> - General Chief Complaint: Pain Stated Complaint: FALL Time Seen by Provider: 11/19/17 12:10 Past History <Fabiola Ramsay - Last Filed: 11/19/17 14:03> - Past Medical History Anemia: No Asthma: Yes (NO MEDS) Cancer: No Cardiac Disorders: No CVA: No COPD: No CHF: No Dementia: No Diabetes: Yes GI Disorders: No Disorders: No HTN: Yes Hypercholesterolemia: No Liver Disease: No Seizures: No Thyroid Disease: No - Surgical History Abdominal Surgery: Yes (GASTRIC BYPASS 2004) Appendectomy: No Cardiac Surgery: No Cholecystectomy: No Lung Surgery: No Neurologic Surgery: No Orthopedic Surgery: Yes (1970S REPAIR OF LEFT AND RIGHT TOES SECONDARY TO DEFORMITY) - Suicide/Smoking/Psychosocial Hx Smoking Status: No Smoking History: Never smoked Have you smoked in the past 12 months: No Number of Cigarettes Smoked Daily: 0 If you are a former smoker, when did you quit?: 1995 Information on smoking cessation initiated: No Hx Alcohol Use: No Drug/Substance Use Hx: No Substance Use Type: None Hx Substance Use Treatment: No <Jeff Horowitz - Last Filed: 11/19/17 14:52> - Past Medical History Allergies/Adverse Reactions: Allergies Allergy/AdvReac Type Severity Reaction Status Date / Time No Known Allergies Allergy Verified 06/05/17 11:29 Home Medications: Ambulatory Orders Biotin 1 mg PO DAILY 06/05/17 Grape Seed Xt/Bioflavon,[place] [Grape Seed 50 mg Capsule] 1 each PO DAILY Losartan/Hydrochlorothiazide [Losartan-Hctz 100-25 mg Tab] 1 each PO DAILY 06/05 [place]-3S/Dha/Epa/Fish Oil [Fish Oil [place]-3 Softgel] 1 each PO DAILY 06/05/17 Turmeric/Turmeric Ext/Pepr Ext [Turmeric Complex 500 mg Cap] 1 each PO DAILY Aspirin [ASA -] 81 mg PO DAILY tab.chew 06/06/17 Insulin Sliding Scale [Novolog Vial Sliding Scale -] 1 vial SQ ACHS units 06/06 Metoprolol Succinate [Toprol XL -] 25 mg PO DAILY tab 06/06/17 Review of Systems - Review of Systems Able to Perform ROS?: Yes Comments:: 11/19/17 13:04 GENERAL/CONSTITUTIONAL: No fever or chills. No weakness. HEAD, EYES, EARS, NOSE AND THROAT: No change in vision. No ear pain or discharge. No sore throat. CARDIOVASCULAR: No chest pain or shortness of breath. RESPIRATORY: No cough, wheezing, or hemoptysis. GASTROINTESTINAL: No nausea, vomiting, diarrhea or constipation. GENITOURINARY: No dysuria, frequency, or change in urination. MUSCULOSKELETAL: No joint or muscle swelling or pain. No neck or back pain. + L hip pain. SKIN: No rash NEUROLOGIC: No headache, vertigo, loss of consciousness, or change in strength/ sensation. ENDOCRINE: No increased thirst. No abnormal weight change. HEMATOLOGIC/LYMPHATIC: No anemia, easy bleeding, or history of blood clots. ALLERGIC/IMMUNOLOGIC: No hives or skin allergy. <Fabiola Ramsay - Last Filed: 11/19/17 14:03> *Physical Exam - Vital Signs Last Vital Signs Temp Pulse Resp BP Pulse Ox 97.5 F L 71 20 136/78 100 11/19/17 12:07 11/19/17 12:07 11/19/17 12:07 11/19/17 12:07 11/19/17 12:07 - Physical Exam Comments: 11/19/17 13:04 GENERAL: Awake, alert, and fully oriented, in no acute distress HEAD: No signs of trauma EYES: PERRLA, EOMI, sclera anicteric, conjunctiva clear ENT: Auricles normal inspection, hearing grossly normal, nares patent, oropharynx clear without exudates. Moist mucosa NECK: Normal ROM, supple, no lymphadenopathy, JVD, or masses LUNGS: Breath sounds equal, clear to auscultation bilaterally. No wheezes, and no crackles HEART: Regular rate and rhythm, normal S1 and S2, no murmurs, rubs or gallops ABDOMEN: Soft, nontender, normoactive bowel sounds. No guarding, no rebound. No masses EXTREMITIES: Normal range of motion, no edema. No clubbing or cyanosis. No cords, erythema, or tenderness. +L hip tenderness to palpation. No bony deformities. NEUROLOGICAL: Cranial nerves II through XII grossly intact. Normal speech, normal gait <Fabiola Ramsay - Last Filed: 11/19/17 14:03> - Vital Signs Last Vital Signs Temp Pulse Resp BP Pulse Ox 97.5 F L 71 20 136/78 100 11/19/17 12:07 11/19/17 12:07 11/19/17 12:07 11/19/17 12:07 11/19/17 12:07 <Jeff Horowitz - Last Filed: 11/19/17 14:52> Heart Score/ECG Review #1 ECG reviewed & interpreted by me at: 13:15 11/19/17 13:35 NSR 60, left axis deviation, low voltage QRS, QTC 454 msec, no std/breana <Jeff Horowitz - Last Filed: 11/19/17 14:52> ED Treatment Course - LABORATORY CBC & Chemistry Diagram: 11/19/17 13:17 11/19/17 13:17 <Fabiola Ramsay - Last Filed: 11/19/17 14:03> - LABORATORY CBC & Chemistry Diagram: 11/19/17 13:17 11/19/17 13:17 - RADIOLOGY Radiology Studies Ordered: Category Date Time Status CHEST X-RAY PORTABLE* [RAD] Stat Radiology 11/19/17 12:19 Ordered HIP & PELVIS-LEFT [RAD] Stat Radiology 11/19/17 12:19 Ordered <Jeff Horowitz - Last Filed: 11/19/17 14:52> Medical Decision Making - Medical Decision Making 11/19/17 14:03 paged via phone answering service. Awaiting call back. <Fabiola Ramsay - Last Filed: 11/19/17 14:03> - Medical Decision Making 11/19/17 12:36 A portion of this note was documented by scribe services under my direction. I have reviewed the details of the note, within reason, and agree with the documentation with the following case summary and management plan written by me. Patient treated in the ED. Nursing notes are reviewed and incorporated into the medical decision-making. Vital signs reviewed. Peripheral IV access obtained by the nurse, laboratory studies are drawn and sent, reviewed and interpreted by myself. Vital Signs Temp Pulse Resp BP Pulse Ox 97.5 F L 71 20 136/78 100 11/19/17 12:07 11/19/17 12:07 11/19/17 12:07 11/19/17 12:07 11/19/17 12:07 67-year-old female with past medical history of hypertension, diabetes presents with syncope. The patient was in her usual state health this morning. She was working at the school when she was walking up the stairs. She suddenly had a syncopal episode that lasted briefly and resolved on its own. She reports falling her left hip but denies head trauma or headache. Stated she was able to ambulate but with left hip pain. Denied chest pain or short of breath or palpitations. Denies recent illnesses, fevers, chills, cough, vomiting, diarrhea. Patient has no complete on the left hip pain. We'll obtain left hip x-ray to rule out fracture. However, if the syncope, we'll investigate with EKG, labs including troponin to r/o cardiac etiology. 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 Santos with the results. 11/19/17 14:50 CBC, BMP 11/19/17 13:17 11/19/17 13:17 CMP Sodium 143 mmol/L (136-145) 11/19/17 13:17 Potassium 4.6 mmol/L (3.5-5.1) 11/19/17 13:17 Chloride 107 mmol/L (98-107) 11/19/17 13:17 Carbon Dioxide 26 mmol/L (21-32) 11/19/17 13:17 Anion Gap 10 (8-16) 11/19/17 13:17 BUN 17 mg/dL (7-18) 11/19/17 13:17 Creatinine 1.3 mg/dL (0.55-1.02) H 11/19/17 13:17 Creat Clearance w eGFR 40.86 (>60) 11/19/17 13:17 Random Glucose 126 mg/dL (74-106) H 11/19/17 13:17 Calcium 8.6 mg/dL (8.5-10.1) 11/19/17 13:17 Phosphorus 4.5 mg/dL (2.5-4.9) 11/19/17 13:17 Magnesium 2.2 mg/dL (1.8-2.4) 11/19/17 13:17 Total Bilirubin 0.4 mg/dL (0.2-1.0) 11/19/17 13:17 AST 18 U/L (15-37) 11/19/17 13:17 ALT 19 U/L (12-78) 11/19/17 13:17 Alkaline Phosphatase 119 U/L (45-117) H 11/19/17 13:17 Creatine Kinase 107 IU/L (26-192) 11/19/17 13:17 Troponin I < 0.02 ng/ml (0.00-0.05) 11/19/17 13:17 Total Protein 6.7 g/dl (6.4-8.2) 11/19/17 13:17 Albumin 3.4 g/dl (3.4-5.0) 11/19/17 13:17 Left hip xray pending. Case discussed with DR. Santos. He is aware patient will be admitted. Case discussed with edith. Will admit for tele observation. Case discussed in detail with admitting physician including history, physical exam and ancillary studies. Admitting physician has assumed care for the patient, will follow all pending diagnostics and will complete the evaluation and treatment. <Jeff Horowitz - Last Filed: 11/19/17 14:52> *DC/Admit/Observation/Transfer - Attestations Scribe Attestion: 11/19/17 13:04 Documentation prepared by Fabiola Ramsay, acting as medical transcriptionist for Jeff Horowitz MD <Fabiola Ramsay - Last Filed: 11/19/17 14:03> - Discharge Dispostion Admit: Yes <Jeff Horowitz - Last Filed: 11/19/17 14:52> Diagnosis at time of Disposition: Hip pain Qualifiers: Laterality: left Qualified Code(s): M25.552 - Pain in left hip Syncope Qualifiers: Syncope type: unspecified Qualified Code(s): R55 - Syncope and collapse - Discharge Dispostion Condition at time of disposition: Stable - Referrals Referrals: Leandro Randall MD [Primary Care Provider] -
[2017-11-19 13:36] LABS: BASO % 0.6 % (0-2.0); EOS % 1.2 % (0-4.5); HEMATOCRIT 39.4 % (32.4-45.2); HEMOGLOBIN 12.8 GM/dL (10.7-15.3); LYMPH % 24.8 % (8-40); MCH 29.9 pg (25.7-33.7); MCHC 32.4 g/dl (32.0-36.0); MEAN CELL VOLUME 92.3 fl (80-96); MEAN PLT VOLUME 9.5 fl (7.5-11.1); MONO % 8.2 % (3.8-10.2); NEUT % 65.2 % (42.8-82.8); PLATELET COUNT 296 K/MM3 (134-434); RBC 4.26 M/mm3 (3.60-5.2); RDW 13.8 % (11.6-15.6); URINE APPEARANCE SLCLOUDY; URINE BILIRUBIN NEGATIVE (NEGATIVE); URINE BLOOD NEGATIVE (NEGATIVE); URINE COLOR YELLOW; URINE GLUCOSE (UA) NEGATIVE (NEGATIVE); URINE KETONE NEGATIVE (NEGATIVE); URINE LEUK ESTERASE NEGATIVE (NEGATIVE); URINE NITRITE NEGATIVE (NEGATIVE); URINE PROTEIN NEGATIVE (NEGATIVE); URINE UROBILINOGEN NEGATIVE mg/dL (0.2-1.0); WHITE BLOOD COUNT 8.1 K/mm3 (4.0-10.0)
[2017-11-19 13:49] LABS: INR 1.02 (0.82-1.09); PROTHROMBIN TIME (PATIENT) 11.5 SEC (9.98-11.88)
[2017-11-19 13:52] LABS: ACTIVATED PTT 33.2 SECONDS (26.9-34.4)
[2017-11-19 13:58] LABS: ALBUMIN 3.4 g/dl (3.4-5.0); ANION GAP 10 (8-16); BILIRUBIN,TOTAL 0.4 mg/dL (0.2-1.0); BLOOD UREA NITROGEN 17 mg/dL (7-18); CALCIUM 8.6 mg/dL (8.5-10.1); CHLORIDE 107 mmol/L (98-107); CO2 26 mmol/L (21-32); CREATININE 1.3 mg/dL (0.55-1.02); GLUCOSE,RANDOM 126 mg/dL (74-106); MAGNESIUM 2.2 mg/dL (1.8-2.4); PHOSPHOROUS 4.5 mg/dL (2.5-4.9); POTASSIUM 4.6 mmol/L (3.5-5.1); SGOT/AST 18 U/L (15-37); SGPT/ALT 19 U/L (12-78); SODIUM 143 mmol/L (136-145); TOT PROT 6.7 g/dl (6.4-8.2)
[2017-11-19 14:01] LABS: ALK PHOS 119 U/L (45-117)
--- NOTE | 2017-11-19 14:57 | HP ---
CHIEF COMPLAINT: " I fainted and fell on my left hip" PCP: Dr. Day Bi Lead: Dr. Santos HISTORY OF PRESENT ILLNESS: Patient is an 67 year old female came in to the ED with the chief complaint of " I fainted and fell on my left hip". 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 She was climbing up the stairs with soda in one hand, then suddenly felt very dizzy and passed out for few seconds and landed on the left hip. Didn't fall down the stairs. She immediately regained consciousness. Patient reports she was worried about left hip fracture hence 911 was called and brought to the ED for further evaluation. Denies chest pain, sob, cough, palpitation, abdominal pain, nausea or vomiting, fever, chills, rigors, sweating, headache, head trauma, neurological symptoms, tingling, numbness. This is her first episode of syncope. Also reports she went to a baby shower last night where she ate a big meal and 2 glasses of Sangria. Patient says she had 3 meatballs for breakfast this morning. Was feeling very thirsty despite drinking water and 2 cups of coffee. This morning her finger stick blood glucose was 119mg/dl and usually ranges from 97-115 mg/dl. Bowel/Bladder habit normal. Sleep/Appetite normal prior to illness. Patient was admitted recently on 05/2017 with the diagnosis of unstable angina, had an abnormal stress test hence was transferred to [facility] for a cath. Patient mentions cath was done, it was normal so stent was not placed. Patient had followed up with Dr. Santos in Sep, 2017 and PCP around 2016. ER course was notable for: (1) Afebrile, hemodynamically stable, Troponin x 1 negative (2) EKG: unchanged from prior (3) 1L of NS Recent Travel: None PAST MEDICAL HISTORY: Hypertension, DM, CAD s/p cath no stent PAST SURGICAL HISTORY: Bariatic surgery 20 yrs ago, Left hip replacement 3 yrs ago Social History: Smoking: Quit 26 yrs ago, smoked for over 10 yrs- light smoker Alcohol: Socially, last drink was yesterday-2 glasses of Sangria Drugs: Denies Family History: Non contributory Allergies No Known Allergies Allergy (Verified 06/05/17 11:29) HOME MEDICATIONS: Home Medications Medication Instructions Recorded Biotin 1 mg PO DAILY 06/05/17 Grape Seed Xt/Bioflavon,[place] 1 each PO DAILY 06/05/17 [Grape Seed 50 mg Capsule] Losartan/Hydrochlorothiazide 1 each PO DAILY 06/05/17 [Losartan-Hctz 100-25 mg Tab] [place]-3S/Dha/Epa/Fish Oil [Fish 1 each PO DAILY 06/05/17 Oil Portia-3 Softgel] Turmeric/Turmeric Ext/Pepr Ext 1 each PO DAILY 06/05/17 [Turmeric Complex 500 mg Cap] Aspirin [ASA -] 81 mg PO DAILY tab.chew 06/06/17 Insulin Sliding Scale [Novolog 1 vial SQ ACHS units 06/06/17 Vial Sliding Scale -] Metoprolol Succinate [Toprol XL -] 25 mg PO DAILY tab 06/06/17 REVIEW OF SYSTEMS CONSTITUTIONAL: Absent: fever, chills, diaphoresis, generalized weakness, malaise, loss of appetite, weight change HEENT: Absent: rhinorrhea, nasal congestion, throat pain, throat swelling, difficulty swallowing, mouth swelling, ear pain, eye pain, visual changes CARDIOVASCULAR: Absent: chest pain, syncope, palpitations, irregular heart rate, lightheadedness , peripheral edema RESPIRATORY: Absent: cough, shortness of breath, dyspnea with exertion, orthopnea, wheezing, stridor, hemoptysis GASTROINTESTINAL: Absent: abdominal pain, abdominal distension, nausea, vomiting, diarrhea, constipation, melena, hematochezia GENITOURINARY: Absent: dysuria, frequency, urgency, hesitancy, hematuria, flank pain, genital pain MUSCULOSKELETAL: Absent: myalgia, arthralgia, joint swelling, back pain, neck pain SKIN: Absent: rash, itching, pallor HEMATOLOGIC/IMMUNOLOGIC: Absent: easy bleeding, easy bruising, lymphadenopathy, frequent infections ENDOCRINE: Absent: unexplained weight gain, unexplained weight loss, heat intolerance, cold intolerance NEUROLOGIC: Present: Dizziness, Syncope Absent: headache, focal weakness or paresthesias, dizziness, unsteady gait, seizure, mental status changes, bladder or bowel incontinence PSYCHIATRIC: Absent: anxiety, depression, suicidal or homicidal ideation, hallucinations. PHYSICAL EXAMINATION Vital Signs - 24 hr 11/19/17 11/19/17 12:06 12:07 Temperature 97.5 F L Pulse Rate 71 Respiratory 20 Rate Blood Pressure 136/78 O2 Sat by Pulse 100 100 Oximetry (%) GENERAL: Patient is lying comfortably in bed, Awake, alert, and fully oriented , in no acute distress. HEAD: Normal with no signs of trauma. EYES: Pupils equal, round and reactive to light, extraocular movements intact, sclera anicteric, conjunctiva clear. No lid lag. EARS, NOSE, THROAT: Ears normal. Moist mucous membranes. NECK: Supple, no carotid bruit. LUNGS: Breath sounds equal, clear to auscultation bilaterally. No wheezes, and no crackles. No accessory muscle use. HEART: Regular rate and rhythm, normal S1 and S2 without murmur. ABDOMEN: Surgical scar ruy +, Soft, nontender, not distended, normoactive bowel sounds, no guarding, no rebound, no masses. No hepatomegaly or splenomegaly. MUSCULOSKELETAL: Normal range of motion at all joints. No bony deformities or tenderness. No CVA tenderness. UPPER EXTREMITIES: 2+ pulses, warm, well-perfused. No cyanosis. No clubbing. No peripheral edema. LOWER EXTREMITIES: 2+ pulses, warm, well-perfused. No calf tenderness. 1+ b/l peripheral edema. NEUROLOGICAL: No facial droop, power 5/ 5in all extremities, Cranial nerves II- XII intact. Normal speech. Gait not observed. Left Hip: ROM limited due to pain. PSYCHIATRIC: Cooperative. Good eye contact. Appropriate mood and affect. SKIN: Warm, dry, normal turgor, no rashes or lesions noted, normal capillary refill. Laboratory Results - last 24 hr 11/19/17 11/19/17 11/19/17 13:17 13:17 13:17 WBC 8.1 RBC 4.26 Hgb 12.8 Hct 39.4 MCV 92.3 MCH 29.9 MCHC 32.4 RDW 13.8 Plt Count 296 MPV 9.5 Neutrophils % 65.2 Lymphocytes % 24.8 Monocytes % 8.2 Eosinophils % 1.2 Basophils % 0.6 PT with INR 11.50 INR 1.02 PTT (Actin FS) 33.2 Sodium 143 Potassium 4.6 Chloride 107 Carbon Dioxide 26 Anion Gap 10 BUN 17 Creatinine 1.3 H Creat Clearance w eGFR 40.86 Random Glucose 126 H Calcium 8.6 Phosphorus 4.5 Magnesium 2.2 Total Bilirubin 0.4 AST 18 ALT 19 Alkaline Phosphatase 119 H Creatine Kinase 107 Troponin I < 0.02 Total Protein 6.7 Albumin 3.4 Urine Color Urine Appearance Urine pH Ur Specific [place] Urine Protein Urine Glucose (UA) Urine Ketones Urine Blood Urine Nitrite Urine Bilirubin Urine Urobilinogen Ur Leukocyte Esterase 11/19/17 13:17 WBC RBC Hgb Hct MCV MCH MCHC RDW Plt Count MPV Neutrophils % Lymphocytes % Monocytes % Eosinophils % Basophils % PT with INR INR PTT (Actin FS) Sodium Potassium Chloride Carbon Dioxide Anion Gap BUN Creatinine Creat Clearance w eGFR Random Glucose Calcium Phosphorus Magnesium Total Bilirubin AST ALT Alkaline Phosphatase Creatine Kinase Troponin I Total Protein Albumin Urine Color Yellow Urine Appearance Slcloudy Urine pH 5.0 Ur Specific [place] 1.016 Urine Protein Negative Urine Glucose (UA) Negative Urine Ketones Negative Urine Blood Negative Urine Nitrite Negative Urine Bilirubin Negative Urine Urobilinogen Negative Ur Leukocyte Esterase Negative ASSESSMENT/PLAN: Patient is an 67 year old female with past medical history of Hypertension, Diabetes Mellitus came in to the ED with the chief complaint of syncope. # Syncope likely vasovagal Could also be due to dehydration c/o fall, for few secs, regained consciouness with no focal neurological defecits. On arrival, she was afebrile, hemodynamically stable, EKG unchanged from prior Admitted in Tele/Obs Continuous cardiac monitoring IV NS @ 75 mls/hr Encourage PO intake Troponin x 1 negative---> next troponin at 7:30 pm. Echo ordered, last echo was in [address] Santos consult requested Lipid panel ordered for AM # Left hip pain-r/o fracture Patient landed on the left hip. However, she was ambulating in the ED with minimal pain. Low suspicion for a fracture X-ray of the left hip done, report is pending. # Hypertension- controlled Continue Metoprolol Succ 25mg PO daily # Diabetes Mellitus A1c pending, do not have her A1c on file Takes Glyburide 5mg BID at home. Continue ISS Finger stick glucose monitoring Watch for hypoglycemia # TONI Creatinine 1.3, baseline is around 1.2 IV Hydration Avoid nephrotoxic drugs. # FEN IV NS @ 75 mls/hr Electrolytes WNL Diabetic diet # Prophylaxis For DVT: On Heparin 5000 IU TID For GI; Not indicated # Code Status: Full Code # Dispo: Possible discharge tomorrow if all her labs/imaging come back normal and no events in tele. # Medications: Confirmed with pharmacy and updated in the system. Illness, Investigation and Plan of care explained to the patient. She verbalized understanding. Case seen and discussed with Dr. Han.
[2017-11-19] MEDS ORDERED: METOPROLOL SUCCINATE 25 MG TAB.SR.24H (FP) PO SCH ×2 (15:00→16:09)
--- NOTE | 2017-11-19 15:40 | PN ---
Teaching Attending Note Name of Resident: Carmen Becerra ATTENDING PHYSICIAN STATEMENT I saw and evaluated the patient. I reviewed the resident's note and discussed the case with the resident. I agree with the resident's findings and plan as documented. SUBJECTIVE: 67 yof with PMHx of HTN, NIDDM, obesity, abnormal stress test in 05/2017, transferred to [facility], with reportedly non concerning cath, comes with syncope. 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 Reports may have been out only for a few seconds, woke up with no confusion or concerns. Had some left hip pain after she woke up so came to the ED Denies any chest pain, palpitions, dyspnea, visual or speech disturbances, focal weakness, tongue bite, confusion, urinary or bowel incontinence around the episode. Had a heavy meal with sangria last night at a baby shower. Had URI a week ago, which is resolved with only minimal residual cough. Home blood sugars range 70s-100s, had 49 recently . Has been on glyburide for a long time with no recent change in her medications. 12 point ROS done, neg except above, Mild pain on outer left thigh but able to ambulate to the bathroom with no concerns. OBJECTIVE: Vital Signs Period Temp Pulse Resp BP Sys/Myrick Pulse Ox Last 24 Hr 97.5 F 71 20 136/78 100-100 Intake & Output 11/16/17 11/17/17 11/18/17 11/19/17 23:59 23:59 23:59 23:59 Weight 190 lb GENERAL: Awake, alert, and fully oriented, in no acute distress. HEAD: Normal with no signs of trauma. EYES: Pupils equal, round and reactive to light, extraocular movements intact, sclera anicteric, conjunctiva clear. No lid lag. EARS, NOSE, THROAT: Ears normal, nares patent, oropharynx clear without exudates. Moist mucous membranes. NECK: Normal range of motion, supple, no JVD or carotid bruit appreciated LUNGS: Breath sounds equal, clear to auscultation bilaterally. No wheezes, and no crackles. No accessory muscle use. HEART: Regular rate and rhythm, normal S1 and S2 without murmur, rub or gallop. ABDOMEN: Soft, nontender, obese, not distended, normoactive bowel sounds, no guarding, no rebound, no masses. No hepatomegaly or splenomegaly. MUSCULOSKELETAL: Normal range of motion at all joints. No bony deformities or tenderness. No CVA tenderness. UPPER EXTREMITIES: 2+ pulses, warm, well-perfused. No cyanosis. No clubbing. No peripheral edema. LOWER EXTREMITIES: 2+ pulses, warm, well-perfused. No calf tenderness. No peripheral edema. left outer thigh region mild tenderness, no left groin/ buttock pain with ROM at left hip, full ROM, SLR neg. NEUROLOGICAL: Cranial nerves II-XII intact. Normal speech. Normal gait. PSYCHIATRIC: Cooperative. Good eye contact. Appropriate mood and affect. SKIN: Warm, dry, normal turgor, no rashes or lesions noted, normal capillary refill. Home Medication List Medication Instructions Recorded Confirmed Type Biotin 1 mg PO DAILY 06/05/17 06/05/17 History Grape Seed Xt/Bioflavon,[place] 1 each PO DAILY 06/05/17 06/05/17 History [Grape Seed 50 mg Capsule] Losartan/Hydrochlorothiazide 1 each PO DAILY 06/05/17 06/05/17 History [Losartan-Hctz 100-25 mg Tab] [place]-3S/Dha/Epa/Fish Oil [Fish 1 each PO DAILY 06/05/17 06/05/17 History Oil [place]-3 Softgel] Turmeric/Turmeric Ext/Pepr Ext 1 each PO DAILY 06/05/17 06/05/17 History [Turmeric Complex 500 mg Cap] Active Medications Generic Name Dose Route Start Last Admin Trade Name Freq PRN Reason Stop Dose Admin Aspirin 81 mg 11/20/17 10:00 Asa - PO DAILY [facility] Heparin Sodium (Porcine) 5,000 unit 11/19/17 22:00 Heparin - SQ TID [facility] Sodium Chloride 1,000 mls @ 75 mls/hr 11/19/17 16:00 Normal Saline - IV ASDIR [facility] Insulin Aspart 1 vial 11/19/17 16:30 Novolog Vial Sliding Scale - SQ ACHS [facility] Protocol Metoprolol Succinate 25 mg 11/19/17 15:00 Toprol Xl - PO DAILY SHRE[facility] Laboratory Results - last 24 hr 11/19/17 11/19/17 11/19/17 13:17 13:17 13:17 WBC 8.1 RBC 4.26 Hgb 12.8 Hct 39.4 MCV 92.3 MCH 29.9 MCHC 32.4 RDW 13.8 Plt Count 296 MPV 9.5 Neutrophils % 65.2 Lymphocytes % 24.8 Monocytes % 8.2 Eosinophils % 1.2 Basophils % 0.6 PT with INR 11.50 INR 1.02 PTT (Actin FS) 33.2 Sodium 143 Potassium 4.6 Chloride 107 Carbon Dioxide 26 Anion Gap 10 BUN 17 Creatinine 1.3 H Creat Clearance w eGFR 40.86 Random Glucose 126 H Calcium 8.6 Phosphorus 4.5 Magnesium 2.2 Total Bilirubin 0.4 AST 18 ALT 19 Alkaline Phosphatase 119 H Creatine Kinase 107 Troponin I < 0.02 Total Protein 6.7 Albumin 3.4 Urine Color Urine Appearance Urine pH Ur Specific [place] Urine Protein Urine Glucose (UA) Urine Ketones Urine Blood Urine Nitrite Urine Bilirubin Urine Urobilinogen Ur Leukocyte Esterase 11/19/17 13:17 WBC RBC Hgb Hct MCV MCH MCHC RDW Plt Count MPV Neutrophils % Lymphocytes % Monocytes % Eosinophils % Basophils % PT with INR INR PTT (Actin FS) Sodium Potassium Chloride Carbon Dioxide Anion Gap BUN Creatinine Creat Clearance w eGFR Random Glucose Calcium Phosphorus Magnesium Total Bilirubin AST ALT Alkaline Phosphatase Creatine Kinase Troponin I Total Protein Albumin Urine Color Yellow Urine Appearance Slcloudy Urine pH 5.0 Ur Specific [place] 1.016 Urine Protein Negative Urine Glucose (UA) Negative Urine Ketones Negative Urine Blood Negative Urine Nitrite Negative Urine Bilirubin Negative Urine Urobilinogen Negative Ur Leukocyte Esterase Negative EKG NSR, biphasic T waves in V4-V5 (unchanged from prior), low voltage CXR - no acute process Left hip/pelvis xray results pending. ASSESSMENT AND PLAN: 67 yof with HTN, NIDDM, abnormal stress test with reportedly normal cath in 2016, admitted with dizziness, fall, left hip pain. -Syncope, suspect vasovagal compounded by hypovolumia, low suspicion for cardiac or neuro etiology -Fall -Left hip pain -HTN -NIDDM Plan: Check orthostatics. Telemetry, repeat troponin, check 2D echo/Carotid US. Cardiology consulted with Dr. Santos from ED, will follow up. Ambulating well, low suspicion for left hip fracture, follow up hip/pelvis xray. PT eval if concerns with ambulation in AM. Continue toprol. Confirm home diabetic meds.Hold oral hypoglycemics for now, ISS,diabetic diet, Check A1c. Unclear why patient not on statin, discuss with Dr. Santos, check lipid panel. Low risk for DVT, SCDs, ambulation anticipate d/c in 24 hours if work up non revealing and no new concerns. Plan discussed with patient in detail, all questions answered.
[2017-11-19] MEDS ORDERED: METOPROLOL SUCCINATE 50 MG TAB.SR.24H (FP) ONE (15:57)
[2017-11-19] MEDS ORDERED: SODIUM CHLORIDE 1,000 ML IV SCH (16:00)
[2017-11-19] MEDS: INSULIN SLIDING SCALE (NOVOLOG) 1 VIAL SQ SCH ×2 (16:35→22:58)
[2017-11-19] MEDS ORDERED: INSULIN (NOVOLOG) ASPART 100 UNITS/ML 10ML VIAL ONE ×2 (16:37→22:51)
[2017-11-19] MEDS ORDERED: HEPARIN NA (PORCINE) 5,000 UNITS/ML 1ML VIAL ONE (22:51)
[2017-11-19] MEDS: HEPARIN NA (PORCINE) 5,000 UNITS/ML 1ML VIAL SQ SCH (22:58)
[2017-11-20] MEDS ORDERED: HEPARIN NA (PORCINE) 5,000 UNITS/ML 1ML VIAL ONE (06:17)
[2017-11-20] MEDS: HEPARIN NA (PORCINE) 5,000 UNITS/ML 1ML VIAL SQ SCH ×2 (06:23→15:31)
[2017-11-20 07:41] LABS: HEMATOCRIT 38.1 % (32.4-45.2); HEMOGLOBIN 12.2 GM/dL (10.7-15.3); MCH 29.7 pg (25.7-33.7); MCHC 31.9 g/dl (32.0-36.0); MEAN CELL VOLUME 93.1 fl (80-96); MEAN PLT VOLUME 9.7 fl (7.5-11.1); PLATELET COUNT 251 K/MM3 (134-434); RBC 4.09 M/mm3 (3.60-5.2); RDW 13.4 % (11.6-15.6); WHITE BLOOD COUNT 6.7 K/mm3 (4.0-10.0)
[2017-11-20 07:50] LABS: ANION GAP 8 (8-16); BLOOD UREA NITROGEN 18 mg/dL (7-18); CHLORIDE 109 mmol/L (98-107); CO2 25 mmol/L (21-32); GLUCOSE,RANDOM 102 mg/dL (74-106); POTASSIUM 4.6 mmol/L (3.5-5.1); SODIUM 142 mmol/L (136-145)
[2017-11-20 07:54] LABS: CHOLESTEROL 144 mg/dL (50-200); HDL CHOLESTEROL 68 mg/dL (40-60); LDL CHOLESTEROL (ONLY SJRH) 69 mg/dL (5-100); TRIGLYCERIDES 66 mg/dL (35-160)
[2017-11-20] MEDS: INSULIN SLIDING SCALE (NOVOLOG) 1 VIAL SQ SCH ×2 (08:54→12:12)
[2017-11-20] MEDS ORDERED: ASPIRIN 81 MG CHEWABLE TABLETS PO SCH (10:00)
[2017-11-20 10:44] VITALS: TEMP 98.6
--- NOTE | 2017-11-20 13:36 | CONS ---
CARDIOLOGY CONSULTATION DATE OF CONSULTATION: 11/20/2017 LOCATION: Emergency room. REQUESTING PHYSICIAN: Aisha Han MD CHIEF COMPLAINT: Lightheadedness, transient loss of consciousness. HISTORY OF PRESENT ILLNESS: Patient is a 67-year-old female with history of [id number]-[id number] diabetes mellitus, hypertension, bronchial asthma. Patient states that on the day of admission, she was noticing that she was extremely thirsty, had several glasses of water, 2 cups of coffee, went to get a Diet Coke. As she was coming back and climbing stairs, she became lightheaded and had transient loss of consciousness, found herself leaning on the stairwell. There is no history of loss of sphincter control. On questioning, patient states that she was not drinking enough fluids the day before, and the night before admission, was at a green party and apparently had food rich in salt and had 2 alcoholic drinks. No history of palpitations, chest pain or discomfort. No history of dyspnea either at rest or with exertion. No history of paroxysmal nocturnal dyspnea or orthopnea. PAST HISTORY: As mentioned in the history of present illness. SURGICAL HISTORY: 1. Status post tonsillectomy. 2. Gastric bypass surgery. 3. Left hip replacement. SOCIAL HISTORY: She is single, is employed. No history of smoking. Occasional use of alcohol. Has a cup of coffee. FAMILY HISTORY: Father in his 70s of unknown cause. Mother at age 50 of a myocardial infarction. Has one brother who is a diabetic. ALLERGIES: None reported. MEDICATION PRIOR TO ADMISSION: She was on the following medications: 1. Toprol-XL 25 mg p.o. daily. 2. Glyburide/metformin 5/500 mg p.o. b.i.d. a.c. 3. Aspirin 81 mg p.o. daily. 4. Biotin 500 mcg p.o. daily. 5. Multivitamin 1 p.o. daily. 6. Turmeric capsule 1 p.o. daily. 7. [place]-3 fatty acid 1000 mg p.o. daily. 8. capsule 1 p.o. daily. 9. Bianca root capsule 1 p.o. daily. REVIEW OF SYSTEMS: Constitutional: No history of chills, fever, or night sweats. No history of unintentional weight loss. HEENT: No history of headaches, diplopia, or blurred vision. No history of epistaxis, hoarseness, tinnitus, or deafness reported. Respiratory: History of bronchial asthma. There has been no recent recurrence. Cardiovascular: No history of chest pain or discomfort. Gastrointestinal: No history of nausea, vomiting, melena, or hematemesis. No history of abdominal pain or discomfort. No history of change in bowel habits. Genitourinary: No history of dysuria, frequency, or hematuria. She is menopausal. Musculoskeletal: No history of recent myalgias or arthralgias. Endocrine: See history of present illness. No history of intolerance to cold or warm weather. Neurological: See history of present illness. No history of seizures or focal weakness reported. Hematological: No history of anemia, ecchymosis, or bleeding. PHYSICAL EXAMINATION: General: A 67-year-old obese female was in no acute distress. No pallor, cyanosis, clubbing, or jaundice. Vital Signs: Blood pressure 135/74 mmHg. Pulse 60 beats per minute and regular. She was afebrile. Respirations were 20 per minute. Blood pressure at 6:58 was 150/89 mmHg. Neck: Supple. No jugular venous distention. Carotids were 2+. Upstrokes were normal. No bruits were heard, and no thyromegaly was present. Heart: PMI was in the fifth intercostal space. No heaves or thrills. S1 and S2 were normal. Non-ejection systolic click was heard along the left sternal border and apex. No murmur or gallops were heard. Lungs: Clear on auscultation. Abdomen: Soft, obese, and nontender. No hepatosplenomegaly. Bowel sounds are active. No bruits were heard. Extremities: No calf tenderness or dependent edema. Pulses were equal. LABORATORY DATA: CBC November 20, 2017: WBC count was 6700. Hemoglobin was 12.2 g/dL. Platelet count was 251,000. Chemistry: Sodium 142, potassium 4.6, chloride 109, CO2 of 25 mmol/L. Hemoglobin A1c was 7.3%. Random glucose was 116 mg/dL. Total cholesterol 144, LDL cholesterol 69, HDL cholesterol 68, triglycerides 66 mg/dL. X-ray chest impression: No acute chest pathology. ECG is not available. Cardiac catheterization November 20, 2017 was reported to have normal coronary arteries, normal LV ejection fraction. IMPRESSION: 1. Lightheadedness, followed by transient loss of consciousness, etiology to be determined, most likely vasovagal or related to postural hypotension. 2. Ipq-frvnlks-ejjeszxio diabetes mellitus. 3. Hypertension. 4. History of bronchial asthma, currently in remission. 5. Exogenous obesity. RECOMMENDATIONS: 1. Check blood pressure supine and standing. 2. ECG and follow up cardiac enzymes. 3. Patient was instructed to increase her fluid intake. 4. If workup is negative, patient could be discharged with followup in the office. Thank you for your referral. Yours sincerely, KARI SOSA M.D. [id number]
[2017-11-20 14:11] VITALS: BP 136/77; PULSE 64
--- NOTE | 2017-11-20 15:13 | EKG ---
Test Reason : Blood Pressure : / mmHG Vent. Rate : 060 BPM Atrial Rate : 060 BPM P-R Int : 168 ms QRS Dur : 076 ms QT Int : 454 ms P-R-T Axes : 028 -35 044 degrees QTc Int : 454 ms NORMAL SINUS RHYTHM LEFT AXIS DEVIATION LOW VOLTAGE QRS NONSPECIFIC T WAVE ABNORMALITY ABNORMAL ECG Confirmed by Wyatt Goddard MD ([id number]) on 11/20/2017 3:13:44 PM Referred By: Confirmed By:Wyatt Goddard MD
--- NOTE | 2017-11-20 16:16 | PN ---
Teaching Attending Note Name of Resident: Esha Coats ATTENDING PHYSICIAN STATEMENT I saw and evaluated the patient. I reviewed the resident's note and discussed the case with the resident. I agree with the resident's findings and plan as documented. SUBJECTIVE:asymptomatic. requesting to go home. stated she was at a baby shower on sunday and drank a lot of sangria and did not drink much water. she was feeling lightheaded while walking up the stairs. lost consciousness and landed on hip. denies CP, SOB, fever, chills, palpitations, N/V/C/D OBJECTIVE: Last Vital Signs Temp Pulse Resp BP Pulse Ox 98.6 F 64 18 136/77 96 11/20/17 10:43 11/20/17 14:08 11/20/17 14:08 11/20/17 14:08 11/20/17 14:08 General NAD CV S1 S2 RRR no murmur/rub/gallop no carotid bruit Lungs CTA B/L no wheezing/rales/rhonchi ASSESSMENT AND PLAN: 67yo F with PMH HTN, DM, obesity presented to the ER with syncope and admitted under observation for syncope 1. Syncope- no events on hospital monitor. no repeated episodes. orthostatics negative however received IVF in the ER already. carotid doppler and echo wnl. cardiac enzymes neg x2. evaluated by cardio 2. hip pain- xr negative for acute fx 3. TONI- dehydration. resolved 4. can d/c home. encouraged to drink more water. f/u with PMD this week
--- NOTE | 2017-11-20 21:23 | DS ---
Physical Exam: SUBJECTIVE: Patient seen and examined. Pt feeling better and requesting to go home. Pt reports she was at a baby shower on Sunday and drank 2 glasses of sangria and not much water, then had syncopal episode. Pt denies lightheadedness, dizziness, chest pain, palpitations, sob, fever, chills. OBJECTIVE: Vital Signs Period Temp Pulse Resp BP Sys/Myrick Pulse Ox Last 24 Hr 98.1 F-98.6 F 60-68 12-20 128-150/73-89 96-100 PHYSICAL EXAM GENERAL: The patient is awake, alert, and fully oriented, in no acute distress. LUNGS: Breath sounds equal, clear to auscultation bilaterally, no wheezes, no crackles, no accessory muscle use. HEART: Regular rate and rhythm, S1, S2 without murmur, rub or gallop. No carotid bruit. ABDOMEN: Soft, nontender, nondistended, no guarding. EXTREMITIES: Warm, well-perfused, no edema. PSYCH: Normal mood, normal affect. SKIN: Warm, dry, normal turgor, no rashes or lesions noted. LABS Laboratory Results - last 24 hr 11/19/17 11/19/17 11/20/17 20:30 22:50 07:04 WBC RBC Hgb Hct MCV MCH MCHC RDW Plt Count MPV Sodium 142 Potassium 4.6 Chloride 109 H Carbon Dioxide 25 Anion Gap 8 BUN 18 Creatinine 1.0 D POC Glucometer [phone] Random Glucose 102 Hemoglobin A1c % Calcium 8.0 L Troponin I < 0.02 Triglycerides 66 Cholesterol 144 Total LDL Cholesterol 69 HDL Cholesterol 68 H 11/20/17 11/20/17 11/20/17 07:09 07:09 08:51 WBC 6.7 RBC 4.09 Hgb 12.2 Hct 38.1 MCV 93.1 MCH 29.7 MCHC 31.9 L RDW 13.4 Plt Count 251 MPV 9.7 Sodium Potassium Chloride Carbon Dioxide Anion Gap BUN Creatinine POC Glucometer 116 Random Glucose Hemoglobin A1c % 7.3 H Calcium Troponin I Triglycerides Cholesterol Total LDL Cholesterol HDL Cholesterol 11/20/17 12:10 WBC RBC Hgb Hct MCV MCH MCHC RDW Plt Count MPV Sodium Potassium Chloride Carbon Dioxide Anion Gap BUN Creatinine POC Glucometer 118 Random Glucose Hemoglobin A1c % Calcium Troponin I Triglycerides Cholesterol Total LDL Cholesterol HDL Cholesterol HOSPITAL COURSE: Date of Admission:11/19/17 Date of Discharge: 11/20/17 67F with PMH of htn, DM, presented with syncope, admitted under observation for syncope. No events on the bus monitor. No repeated episodes. Orthostatic VSs (-). Trops (-) x 2. TONI likely 2/2 dehydration, resolved with IVFs. Pt encouraged to drink plenty of fluids. 11/19/17 CXR -> no acute chest pathology 11/19/17 hip xray -> s/p Left total hip replacement with no acute displaced periprosthetic fracture. 11/19/17 Carotid Doppler -> no evidence of high grade carotid artery stenosis. 11/20/17 Echo -> normal study. Left ventricle normal in size, thickness, and function. Right ventricle normal in size and function. Trace MR. Pt stable for discharge home. Minutes to complete discharge: 35 Discharge Summary Reason For Visit: SYNCOPE Condition: Improved - Instructions Diet, Activity, Other Instructions: You were assessed and treated for an episode of loss of consciousness, which was likely caused by dehydration. Drink plenty of fluids. There were no changes made to your medications. Please continue your home medications as prescribed. Continue to eat a Diabetic diet and increase physical activities as tolerated. Follow-ups: - with your Primary Care Doctor (Dr. Randall) in 1 week - with your Apprentice Architect (Dr. Santos) in 2 week Please return to the hospital immediately if you experience persistent or increased dizziness, loss of consciousness, lightheadedness, chest pain, or for any medical emergency. Referrals: Leandro Randall MD [Primary Care Provider] - Darin Santos MD [Staff Physician] - Disposition: HOME - Home Medications Comprehensive Discharge Medication List: Ambulatory Orders Biotin 1 mg PO DAILY 06/05/17 Grape Seed Xt/Bioflavon,[place] [Grape Seed 50 mg Capsule] 1 each PO DAILY [place]-3S/Dha/Epa/Fish Oil [Fish Oil [place]-3 Softgel] 1 each PO DAILY 06/05/17 Turmeric/Turmeric Ext/Pepr Ext [Turmeric Complex 500 mg Cap] 1 each PO DAILY Aspirin [ASA -] 81 mg PO DAILY tab.chew 06/06/17 Metoprolol Succinate [Toprol XL -] 25 mg PO DAILY tab 06/06/17 Glyburide 5 mg PO BID 11/19/17 This patient is new to me today: Yes Date on this admission: 11/20/17 Emergency Visit: Yes ED Registration Date: 11/19/17 Care time: The patient presented to the Emergency Department on the above date and was hospitalized for further evaluation of their emergent condition. Critical Care patient: No - Discharge Referral Referred to [facility] Med P.C.: No
== END 2017-11-20 16:13 | disposition home or self-care (01) ==
LOC: JER 11:45 → JERBED 14:52
PROVIDERS: ADMIT Internal Medicine; ATTEND Internal Medicine
PROC: 3E0337Z Introduction of Electrolytic and Water Balance Substance into Peripheral Vein, Percutaneous Approach (ICD-10-PCS; principal; 2017-11-19)
DX: R55 Syncope and collapse (principal); M25.552 Pain in left hip; I10 Essential (primary) hypertension; E11.9 Type 2 diabetes mellitus without complications; N17.9 Acute kidney failure, unspecified
CPT/HCPCS: 36415; 71045-TC; 73523-TC; 80048; 80053; 80061; 81003; 82550; 82962; 83036; 83721; 83735; 84100; 84484; 85025; 85027; 85610; 85730; 87086; 93005; 93010; 93306-TC; 93880-TC; 96360; 99285-25; G0378; J1644

== ENCOUNTER 2017-12-18 12:34 | Emergency (ER) | payer OTHER ==
[2017-12-18 13:02] VITALS: BP 115/65; PULSE 75; TEMP 99; BMI 32.4
[2017-12-18] MEDS ORDERED: ACETAMINOPHEN 325 MG TABLET (FP) PO ONE (14:25)
--- NOTE | 2017-12-18 14:28 | PDOC ---
History of Present Illness - General Chief Complaint: Cold Symptoms Stated Complaint: FLU LIKE SYMPTOMS Time Seen by Provider: 12/18/17 13:54 History Source: Patient - History of Present Illness Timing/Duration: reports: yesterday Associated Symptoms: reports: cough, fever/chills, headache, muscle aches. denies: chest pain/soreness, earache, nasal congestion, nasal drainage, sore throat, wheezing Past History - Past Medical History Allergies/Adverse Reactions: Allergies Allergy/AdvReac Type Severity Reaction Status Date / Time No Known Allergies Allergy Verified 12/18/17 13:03 Home Medications: Ambulatory Orders Biotin 1 mg PO DAILY 06/05/17 Grape Seed Xt/Bioflavon,[place] [Grape Seed 50 mg Capsule] 1 each PO DAILY [place]-3S/Dha/Epa/Fish Oil [Fish Oil [place]-3 Softgel] 1 each PO DAILY 06/05/17 Turmeric/Turmeric Ext/Pepr Ext [Turmeric Complex 500 mg Cap] 1 each PO DAILY Aspirin [ASA -] 81 mg PO DAILY tab.chew 06/06/17 Metoprolol Succinate [Toprol XL -] 25 mg PO DAILY tab 06/06/17 Glyburide 5 mg PO BID 11/19/17 Anemia: No Asthma: Yes (NO MEDS) Cancer: No Cardiac Disorders: No CVA: No COPD: No CHF: No Dementia: No Diabetes: Yes GI Disorders: No Disorders: No HTN: Yes Hypercholesterolemia: No Liver Disease: No Seizures: No Thyroid Disease: No - Surgical History Abdominal Surgery: Yes (GASTRIC BYPASS 2004) Appendectomy: No Cardiac Surgery: No Cholecystectomy: No Lung Surgery: No Neurologic Surgery: No Orthopedic Surgery: Yes (1970S REPAIR OF LEFT AND RIGHT TOES SECONDARY TO DEFORMITY) - Suicide/Smoking/Psychosocial Hx Smoking Status: No Smoking History: Former smoker Have you smoked in the past 12 months: No Number of Cigarettes Smoked Daily: 0 If you are a former smoker, when did you quit?: 1995 Information on smoking cessation initiated: No Hx Alcohol Use: No Drug/Substance Use Hx: No Substance Use Type: None Hx Substance Use Treatment: No Review of Systems - Review of Systems Constitutional: Yes: Chills, Fever, Malaise HEENTM: No: Ear Pain, Throat Pain Respiratory: Yes: Cough. No: Shortness of Breath, Wheezing ABD/GI: No: Diarrhea, Nausea, Vomiting *Physical Exam - Vital Signs Last Vital Signs Temp Pulse Resp BP Pulse Ox 99 F 75 20 115/65 100 12/18/17 13:00 12/18/17 13:00 12/18/17 13:00 12/18/17 13:00 12/18/17 13:00 - Physical Exam General Appearance: Yes: Appropriately Dressed. No: Apparent Distress HEENT: positive: Normal ENT Inspection, Normal Voice. negative: Scleral Icterus (R), Scleral Icterus (L) Neck: positive: Supple. negative: Lymphadenopathy (R), Lymphadenopathy (L) Respiratory/Chest: positive: Lungs Clear, Normal Breath Sounds. negative: Respiratory Distress Integumentary: positive: Dry, Warm Neurologic: positive: Fully Oriented, Alert, Normal Mood/Affect Medical Decision Making - Medical Decision Making 12/18/17 14:26 67-year-old female, history of diabetes, here with body aches, malaise, dry cough, hoarseness and subjective fever since yesterday morning. No shortness of breath, chest pain, abdominal pain, nausea, vomiting or diarrhea. No known sick contacts or recent travel. Patient ill appearing, in ED but stable with unremarkable exam. Most likely viral syndrome, rule out flu. Pain control in ED. 12/18/17 15:21 Flu negative. Will discharge with supportive treatments *DC/Admit/Observation/Transfer Diagnosis at time of Disposition: Viral syndrome - Discharge Dispostion Disposition: HOME Condition at time of disposition: Improved - Referrals Referrals: Leandro Randall MD [Primary Care Provider] - - Patient Instructions Printed Discharge Instructions: DI for Viral Syndrome Additional Instructions: You have a viral illness but not the flu. Rest, drink plenty of fluids and take Tylenol as needed for pain and/or fever. If symptoms worsen, return to ED, otherwise follow-up with your doctor as needed - Post Discharge Activity Forms/Work/School Notes: Back to Work
[2017-12-18] MEDS ORDERED: ACETAMINOPHEN 325 MG TABLET (FP) ONE (14:29)
== END 2017-12-18 15:24 | disposition home or self-care (01) ==
LOC: JERFT 12:34
DX: B34.9 Viral infection, unspecified (principal); I10 Essential (primary) hypertension; E11.9 Type 2 diabetes mellitus without complications; J45.909 Unspecified asthma, uncomplicated; Z87.891 Personal history of nicotine dependence; Z98.84 Bariatric surgery status
CPT/HCPCS: 87804; 99281-25